=== PATIENT | male | born 1995 | race Caucasian/White ===

== ENCOUNTER 2018-12-24 23:34 | Emergency (ER) | payer SELFPAY ==
[~2018-12-24] VITALS: Ht 172.7 cm; Wt 63.5 kg
[2018-12-24 23:43] VITALS: BP 116/86; Ht 172.7 cm; Wt 63.5 kg
== END 2018-12-25 00:53 | disposition home or self-care (01) ==
LOC: ED 23:34
DX: F10.129 Alcohol abuse with intoxication, unspecified (principal); Z04.1 Encounter for examination and observation following transport accident